=== PATIENT | male | born 1965 | race Caucasian/White ===

== ENCOUNTER 2019-03-06 20:09 | Inpatient (IN) | payer BC ==
[~2019-03-06] VITALS: Ht 190.5 cm; Wt 102.3 kg
[2019-03-06] MEDS ORDERED: NORVASC10 MG PO (20:14)
[2019-03-06] MEDS ORDERED: CELEXA20 MG PO (20:15)
[2019-03-06] MEDS ORDERED: ULORIC40 MG PO (20:15)
[2019-03-06] MEDS ORDERED: NEXIUM40 MG PO (20:15)
[2019-03-06] MEDS ORDERED: BENICAR HCT 201 EAC1 PO (20:15)
[2019-03-06] MEDS ORDERED: SINGULAIR10 MG PO (20:15)
--- NOTE | 2019-03-06 21:40 | NUR ---
ARRIVES VIA WC TO ROOM 10 TO RESTROOM THEN TO BED LOW AND LO-CKED AND CALL LIGHT PLACED SKIN WARM AND DRY AND LCTA IV FLUIDS STARTED AT 200/HR OTHER NEEDS OF COMFORT MEET VS 98.6 112/60 102 19 97%
--- NOTE | 2019-03-06 22:01 | NUR ---
NOTE PT HAS TELEMETRY ORDERED BUT NONE AVAILABLE
[2019-03-07 03:13] VITALS: BP 112/60; BMI 28.1
[2019-03-07 04:00] VITALS: BP 99/67
[2019-03-07 07:38] LABS: BASOPHILS 0.6 % (0-2); EOSINOPHILS 0.8 % (0-7); HEMATOCRIT 29.2 % (42.0-54.0); HEMOGLOBIN 10.5 g/dL (13.5-17.5); IMMATURE GRANULOCYTES 0.3 % (0-5); MCH 33.7 pg (26.0-34.0); MCV 93.6 fL (80.0-100.0); MEAN PLATELET VOLUME 9.6 fL (7.4-10.4); MONOCYTES 13.7 % (2-11); NEUTROPHILS 63.6 % (40-80); PLATELET COUNT 157 10x3/uL (130-400); RBC 3.12 10x6/uL (4.20-6.10); RDW 13.7 % (11.5-14.5); WBC 3.6 10x3/uL (4.8-10.8)
[2019-03-07 07:57] VITALS: BP 115/78
[2019-03-07 08:23] LABS: ALBUMIN 3.1 g/dL (3.4-5.0); ANION GAP 16.5 mmol/L (8-16); BILIRUBIN - TOTAL 1.46 mg/dL (0.2-1.3); CALCIUM 8.6 mg/dL (8.5-10.1); CREATININE - SERUM 2.6 mg/dL (0.6-1.3); MAGNESIUM - SERUM 1.1 mg/dL (1.8-2.4); POTASSIUM - SERUM 3.5 mmol/L (3.5-5.1); PROTEIN - SERUM 6.6 g/dL (6.4-8.2)
--- NOTE | 2019-03-07 08:26 | NUR ---
AM MEDS GIVEN AT THIS TIME. COMPUTER IN ROOM NOT WORKING, SO HAD TO TYPE IN MEDICATIONS AT DESK. PT WANTS TO TAKE A SHOWER LATER TODAY, WILL NOTIFY NURSE OR FERRY BOAT CAPTAIN WHEN READY. PROVIDED PT WITH TWO ROLLS OF TOILET PAPER. CALL LIGHT IN REACH, NAD NOTED,BEDSIDE RAILS X2, WILL CONTINUE TO MONITOR.
--- NOTE | 2019-03-07 11:36 | NUR ---
PROVIDED PT WITH SUPPLIES NEEDED FOR A SHOWER, COMPLETE LINEN CHANGE PROVIDED ALSO. PT DENIES ANY NEEDS AT THIS TIME. CALL LIGHT IN REACH, NAD NOTED, WILL CONTINUE PLAN OF CARE.
[2019-03-07 12:50] VITALS: BP 97/63
[2019-03-07 15:28] VITALS: Ht 190.5 cm; Wt 102.3 kg
[2019-03-07 16:52] VITALS: BP 110/72
[2019-03-07 19:05] LABS: APPEARANCE CLEAR (CLEAR); BILIRUBIN NEGATIVE (NEGATIVE); COLOR YELLOW (YELLOW); GLUCOSE 500 mg/dL (NEGATIVE); KETONE NEGATIVE (NEGATIVE); NITRITE NEGATIVE (NEGATIVE); PROTEIN NEGATIVE (NEGATIVE); SPECIFIC GRAVITY 1.015 (1.005-1.020); UROBILINOGEN NORMAL (NORMAL)
[2019-03-07 19:19] LABS: UDS - AMPHET NEGATIVE QUAL (NEGATIVE); UDS - BARB NEGATIVE QUAL (NEGATIVE); UDS - BENZO NEGATIVE QUAL (NEGATIVE); UDS - COCAINE NEGATIVE QUAL (NEGATIVE); UDS - OPIATE NEGATIVE QUAL (NEGATIVE); UDS - PCP NEGATIVE QUAL (NEGATIVE); UDS - THC NEGATIVE QUAL (NEGATIVE)
[2019-03-07 20:00] VITALS: BP 95/61
--- NOTE | 2019-03-07 22:31 | NUR ---
PT IN BED LOWEST POSITION, RFA IV NS RUNNING AND PATENT DRSG ADHERED WELL TO SKIN, ALCOHOL CAPS IN USE, ICE WATER REQUESTED AND GIVEN, NO OTHER NEEDS NOTED OR VERBALIZED, FLUIDS AND CALL LIGHT WITHIN REACH
--- NOTE | 2019-03-08 03:16 | NUR ---
MED TECH DOWN 0130 TO 0300, NS STARTED AT 0230, IV PATENT DRSG ADHERED TO SKIN, 2ND PO MAGNESIUM GIVEN, MAG LEVEL TO BE REDRAWN AT 0500, FLUIDS AND CALL LIGHT WITHIN REACH
[2019-03-08 04:00] VITALS: BP 103/61
[2019-03-08 05:46] LABS: BASOPHILS 0.5 % (0-2); EOSINOPHILS 2.1 % (0-7); HEMATOCRIT 27.1 % (42.0-54.0); HEMOGLOBIN 9.4 g/dL (13.5-17.5); LYMPHOCYTES 29.7 % (15-50); MCH 33.2 pg (26.0-34.0); MCHC 34.7 g/dL (31.0-37.0); MEAN PLATELET VOLUME 9.4 fL (7.4-10.4); MONOCYTES 12.5 % (2-11); NEUTROPHILS 55.2 % (40-80); RBC 2.83 10x6/uL (4.20-6.10); RDW 13.5 % (11.5-14.5); WBC 3.8 10x3/uL (4.8-10.8)
[2019-03-08 06:13] LABS: ANION GAP 11.8 mmol/L (8-16); CALCIUM 7.7 mg/dL (8.5-10.1); CARBON DIOXIDE 27.7 mmol/L (21.0-32.0); MAGNESIUM - SERUM 1.4 mg/dL (1.8-2.4); POTASSIUM - SERUM 3.5 mmol/L (3.5-5.1)
[2019-03-08 06:18] LABS: CREATININE - SERUM 1.6 mg/dL (0.6-1.3)
[2019-03-08 06:41] LABS: MCV 95.8 fL (80.0-100.0); PLATELET COUNT 122 10x3/uL (130-400)
--- NOTE | 2019-03-08 07:40 | NUR ---
PT RESTING COMFORTABLY IN BED, EASILY AROUSES TO VOICE, RESP EVEN AND NONLABORED ON RA. RT FA IV INFUSING NS AT 150CC/HR. 40MEQ OF K GIVEN FOR K OF 3.5, ALSO HUNG 1G OF MAG AT THIS TIME. PT WILL GET A TOTAL OF 2 BAGS. PT DNEIES ANY NEEDS AT THIS TIME. CALL LIGHT IN REACH, NAD NOTED, WILL CONTINUE TO MONITOR.
[2019-03-08 08:30] VITALS: BP 113/73
--- NOTE | 2019-03-08 09:27 | NUR ---
PROVIDED PT WITH ITEMS NEEDED FOR A SHOWER. BUCKET CHUCKER PROVIDED COMPLETE LINEN CHANGE AT THIS TIME.
[2019-03-08 12:59] VITALS: BP 109/69
[2019-03-08] MEDS ORDERED: MAG-OX 400 MG400 MG PO (13:24)
--- NOTE | 2019-03-08 14:00 | MORECARE ---
CASE MANAGEMENT DISCHARGE SUMMARY PATIENT: TATI ELIAS UNIT: [id number] ADM DATE: 03/06/19 AGE: 53 : 69 SEX: M ROOM/BED: D.2110 AUTHOR: ELVI DINH PHYSICIAN: REFERRING PHYSICIAN: TRAY BHATTI MD DATE OF SERVICE: 03/08/19 Discharge Plan Patient Name: TATI ELIAS Facility: [facility]:[place] : 1965 Planned Disposition: Other Type of Facility Anticipated Discharge Date: 03/08/19 Discharge Date: Expected LOS: 2 Initial Reviewer: [email or web address] Initial Review Date: 03/08/2019 Generated: 03/08/19 3:00 pm External Providers External Provider: OTHER-OTHER Next Contact Date: 03/08/2019 Service Request Date: Service Type: Resolution: Reviewer: Comments: Patient Name: TATI ELIAS Page 78452 at 1400 All edits/amendments must be made on the electronic document DICTATION DATE: 03/08/19 1400 MANAGER NC: GREG 03/08/19 1400 RPT#: [id number] DC DATE: STATUS: ADM IN [place] [address] [place] [address] END OF REPORT
--- NOTE | 2019-03-08 14:26 | MORECARE ---
CASE MANAGEMENT DISCHARGE SUMMARY PATIENT: TATI ELIAS UNIT: [id number] ADM DATE: 03/06/19 AGE: 53 : 69 SEX: M ROOM/BED: D.2110 AUTHOR: ELVI DINH PHYSICIAN: REFERRING PHYSICIAN: TRAY BHATTI MD DATE OF SERVICE: 03/08/19 Discharge Plan Patient Name: TATI ELIAS Facility: [facility]:[place] : 1965 Planned Disposition: Other Type of Facility Anticipated Discharge Date: 03/08/19 Discharge Date: Expected LOS: 2 Initial Reviewer: [email or web address] Initial Review Date: 03/08/2019 Generated: 03/08/19 3:26 pm DCPIA - Discharge Planning Initial Assessment Updated by [email or web address]: Kyler Richter on 03/08/19 2:19 pm * Is the patient Alert and Oriented? Yes * How many steps to enter\exit or inside your home? * PCP RUBY FARRIS APN FOR DR. LATOYA WAGGONER IN [place] * Pharmacy [facility] IN [place] * Preadmission Environment Home Alone * ADLs Independent * Equipment None * Other Equipment NO MEDICAL EQUIPMENT PROVIDER PREFERENCE * List name and contact numbers for known caregivers / representatives who currently or will assist patient after discharge: KANDY CALLOWAY, LADY FRIEND, CICI ELIAS, EX , BRIANNE MATA, [place] REP, * Verbal permission to speak to the caregivers and representatives has been obtained from the patient. Yes * Community resources currently utilized None * Please name any agencies selected above. NONE * Additional services required to return to the preadmission environment? No * Can the patient safely return to the preadmission environment? Yes * Has this patient been hospitalized within the prior 30 days at any hospital? No Last DP export: 03/08/19 1:00 p Patient Name: TATI ELIAS Page 19171 at 1426 All edits/amendments must be made on the electronic document DICTATION DATE: 03/08/[address] TECHNICIAN: GREG 03/08/19 1426 RPT#: [id number] ME DATE: STATUS: ADM IN [facility] [address] [place] [address] END OF REPORT
--- NOTE | 2019-03-08 15:00 | MORECARE ---
CASE MANAGEMENT DISCHARGE SUMMARY PATIENT: TATI ELIAS UNIT: [id number] ADM DATE: 03/06/19 AGE: 53 : 69 SEX: M ROOM/BED: D.2110 AUTHOR: ALLEGRA,DOC PHYSICIAN: REFERRING PHYSICIAN: TRAY BHATTI MD DATE OF SERVICE: 03/08/19 Discharge Plan Patient Name: TATI ELIAS [facility] [facility] 1965 Planned Disposition: Other Type of Facility Anticipated Discharge Date: 03/08/19 Discharge Date: Expected LOS: 2 Initial Reviewer: [id number] Initial Review Date: 03/08/2019 Generated: 03/08/19 4:00 pm Comments DCP- Discharge Planning Updated by [email or web address]: Kyler Richter on 03/08/19 1:[address] Patient Name: TATI ELIAS Admission Status: ER Accout number: [id number] Admission Date: 03-06-2019 : 1965 Admission Diagnosis:ACUTE KIDNEY FAILURE, UNSPECIFIED Attending: TRAY BHATTI Current LOS: 2 Anticipated DC Date: 03-08-2019 Planned Disposition: Other Type of Facility Primary Insurance: [employer] PPO PLANNED EXTERNAL PROVIDER: [facility], CHEMICAL DEPENDENCY UNIT Discharge Planning Comments: CM RECEIVED REQUEST TO SEE PT IN ROOM REGARDING INSURANCE. CM MET WITH PT IN ROOM TO DISCUSS DISCHARGE PLANNING AND NEEDS. PT WANTS THE DOCTOR TO SIGN FMLA PAPERWORK, CM DIRECTED PT TO HIS PRIMARY CARE DOCTOR. PT REPORTS LIVING AT HOME INDEPENDENTLY AND ALONE. PT HAS NO MEDICAL EQUIPMENT AND NO OUTSIDE SERVICES ASSISTING IN THE HOME. CM DISCUSSED AVAILABILITY OF HOME HEALTH, REHAB SERVICES AND MEDICAL EQUIPMENT. PT REPORTS HE WILL RETURN TO "[facility]" IN [place] AT DISCHARGE. CM ASKED WHAT TYPE OF FACILITY THIS IS. PT DIRECTED CM TO HIS UNION REPRESENTIVE, BRIANNE MATA. PT REPORTS HIS LADY FRIEND WILL PICK HIMUP FOR DISCHARGE BACK TO [facility] IN [place]. CM RECEIVED CALL FROM BRIANNE BARRETO REPORTS PT WAS GOING TO BE ADMITTED TO [facility] CHEMICAL DEPENDENCY UNIT BUT WAS SENT TO [place] DUE TO ABNORMAL LABS. THE PLAN IS FOR PT TO GO TO [facility] AND ADMIT TO CHEMICAL DEPENDENCY UNIT ON DISCHARGE FROM HOSPITAL. BRIANNE WILL SEND FMLA PAPERWORK TO THE CHEMICAL DEPENDENCY UNIT WITH REQUEST FOR COMPLETION THERE. CM CALLED [facility]ENDENCY [facility], , CONFIRMED REFERRAL FOR TREATMENT ADMISSION, THEY ARE WAITING ON CLINICALS. CM FAXED HOSPITAL UPDATE FOR ADMISSION REQUEST TO RU AT [phone]. CM RECEIVED CALL FROM BRIANNE WHO REPORTS THAT PT'S LADY FRIEND NOR HE IS ABLE TO BEHAVIORAL HEALTH CONSULTANT PT UNTIL TOMORROW FOR TRANSPORT TO REHAB IN [place]. PT AND BRIANNE ARE AWARE THAT PT HAS BEEN DISCHARGED FROM THE HOSPITAL TODAY. CM WAITING ADMISSION DETERMINATION FROM [facility] CHEM[facility] DEPENDENCY [facility]. Clinic Nurse: Kyler Richter DCPIA - Discharge Planning Initial Assessment Updated by [email or web address]: Kyler Richter on 03/08/19 2:19 pm * Is the patient Alert and Oriented? Yes * How many steps to enter\\exit or inside your home? * PCP RUBY FARRIS APN FOR DR. LATOYA WAGGONER IN [place] * Pharmacy [facility] IN [place] * Preadmission Environment Home Alone * ADLs Independent * Equipment None * Other Equipment NO MEDICAL EQUIPMENT PROVIDER PREFERENCE * List name and contact numbers for known caregivers / representatives who currently or will assist patient after discharge: KANDY BRODIE, LADY FRIEND, CICI ELIAS, EX , BRIANNE MATA, [place] REP, * Verbal permission to speak to the caregivers and representatives has been obtained from the patient. Yes * Community resources currently utilized None * Please name any agencies selected above. NONE * Additional services required to return to the preadmission environment? No * Can the patient safely return to the preadmission environment? Yes * Has this patient been hospitalized within the prior 30 days at any hospital? No Last DP export: 03/08/19 1:26 p Patient Name: TATI ELIAS Page 84897 at 1500 All edits/amendments must be made on the electronic document DICTATION DATE: 03/08/191458 CONDUIT CLEANER: GREG 03/08/191458 RPT#: [id number] DC DATE: STATUS: ADM IN [facility] [address] [place] [address] END OF REPORT
--- NOTE | 2019-03-08 15:42 | MORECARE ---
CASE MANAGEMENT DISCHARGE SUMMARY PATIENT: TATI ELIAS UNIT: [id number] ADM DATE: 03/06/19 AGE: 53 : 69 SEX: M ROOM/BED: D.2110 AUTHOR: ALLEGRA,DOC PHYSICIAN: REFERRING PHYSICIAN: TRAY BHATTI MD DATE OF SERVICE: 03/08/19 Discharge Plan Patient Name: TATI ELIAS [facility] [facility] 1965 Planned Disposition: Other Type of Facility Anticipated Discharge Date: 03/08/19 Discharge Date: Expected LOS: 2 Initial Reviewer: [email or web address] Initial Review Date: 03/08/2019 Generated: 03/08/19 4:42 pm Comments DCP- Discharge Planning Updated by [email or web address]: Kyler Richter on 03/08/19 1:[address] Patient Name: TATI ELIAS Admission Status: ER Accout number: [id number] Admission Date: 03-06-2019 : 1965 Admission Diagnosis:ACUTE KIDNEY FAILURE, UNSPECIFIED Attending: TRAY BHATTI Current LOS: 2 Anticipated DC Date: 03-08-2019 Planned Disposition: Other Type of Facility Primary Insurance: [employer] PPO PLANNED EXTERNAL PROVIDER: [facility], CHEMICAL DEPENDENCY UNIT Discharge Planning Comments: CM RECEIVED REQUEST TO SEE PT IN ROOM REGARDING INSURANCE. CM MET WITH PT IN ROOM TO DISCUSS DISCHARGE PLANNING AND NEEDS. PT WANTS THE DOCTOR TO SIGN FMLA PAPERWORK, CM DIRECTED PT TO HIS PRIMARY CARE DOCTOR. PT REPORTS LIVING AT HOME INDEPENDENTLY AND ALONE. PT HAS NO MEDICAL EQUIPMENT AND NO OUTSIDE SERVICES ASSISTING IN THE HOME. CM DISCUSSED AVAILABILITY OF HOME HEALTH, REHAB SERVICES AND MEDICAL EQUIPMENT. PT REPORTS HE WILL RETURN TO "[facility]" IN [place] AT DISCHARGE. CM ASKED WHAT TYPE OF FACILITY THIS IS. PT DIRECTED CM TO HIS UNION REPRESENTIVE, BRIANNE MATA. PT REPORTS HIS LADY FRIEND WILL PICK HIMUP FOR DISCHARGE BACK TO [facility] IN [place]. CM RECEIVED CALL FROM BRIANNE BARRETO REPORTS PT WAS GOING TO BE ADMITTED TO [facility] CHEMICAL DEPENDENCY UNIT BUT WAS SENT TO [place] DUE TO ABNORMAL LABS. THE PLAN IS FOR PT TO GO TO [facility] AND ADMIT TO CHEMICAL DEPENDENCY UNIT ON DISCHARGE FROM HOSPITAL. BRIANNE WILL SEND FMLA PAPERWORK TO THE CHEMICAL DEPENDENCY UNIT WITH REQUEST FOR COMPLETION THERE. CM CALLED [facility], , CONFIRMED REFERRAL FOR TREATMENT ADMISSION, THEY ARE WAITING ON CLINICALS. CM FAXED HOSPITAL UPDATE FOR ADMISSION REQUEST TO RU AT [phone]. CM RECEIVED CALL FROM BRIANNE WHO REPORTS THAT PT'S LADY FRIEND NOR HE IS ABLE TO AUTO BODY REPAIRER PT UNTIL TOMORROW FOR TRANSPORT TO REHAB IN [place]. PT AND BRIANNE ARE AWARE THAT PT HAS BEEN DISCHARGED FROM THE HOSPITAL TODAY. CM WAITING ADMISSION DETERMINATION FROM [facility] DE[facility]END[facility]Y [facility]. Lithographic Printing Machinist: Kyler Richter DCPIA - Discharge Planning Initial Assessment Updated by [id number]: Kyler Richter on 03/08/19 2:19 pm * Is the patient Alert and Oriented? Yes * How many steps to enter\\exit or inside your home? * PCP RUBY FARRIS APN FOR DR. LATOYA WAGGONER IN [place] * Pharmacy [facility] IN [place] * Preadmission Environment Home Alone * ADLs Independent * Equipment None * Other Equipment NO MEDICAL EQUIPMENT PROVIDER PREFERENCE * List name and contact numbers for known caregivers / representatives who currently or will assist patient after discharge: KANDY BRODIE, LADY FRIEND, CICI ELIAS, EX , BRIANNE MATA, [place] REP, * Verbal permission to speak to the caregivers and representatives has been obtained from the patient. Yes * Community resources currently utilized None * Please name any agencies selected above. NONE * Additional services required to return to the preadmission environment? No * Can the patient safely return to the preadmission environment? Yes * Has this patient been hospitalized within the prior 30 days at any hospital? No Last DP export: 03/08/19 2:00 p Patient Name: TATI ELIAS Page 48659 at 1542 All edits/amendments must be made on the electronic document DICTATION DATE: 03/08/191541 FORWARDER OPERATOR: GREG 03/08/191541 RPT#: [id number] DC DATE: STATUS: ADM IN [facility] [address] [facility] [place] [address] END OF REPORT
--- NOTE | 2019-03-08 15:55 | MORECARE ---
CASE MANAGEMENT DISCHARGE SUMMARY PATIENT: TATI ELIAS UNIT: [id number] ADM DATE: 03/06/19 AGE: 53 : 69 SEX: M ROOM/BED: D.2110 AUTHOR: ALLEGRA,DOC PHYSICIAN: REFERRING PHYSICIAN: TRAY BHATTI MD DATE OF SERVICE: 03/08/19 Discharge Plan Patient Name: TATI ELIAS [facility] [facility] 1965 Planned Disposition: Other Type of Facility Anticipated Discharge Date: 03/08/19 Discharge Date: Expected LOS: 2 Initial Reviewer: [email or web address] Initial Review Date: 03/08/2019 Generated: 03/08/19 4:54 pm Comments DCP- Discharge Planning Updated by [email or web address]: Kyler Cunningham on 03/08/19 2:[address] Patient Name: TATI ELIAS Admission Status: ER Accout number: [id number] Admission Date: 03-06-2019 : 1965 Admission Diagnosis:ACUTE KIDNEY FAILURE, UNSPECIFIED Attending: TRAY BHATTI Current LOS: 2 Anticipated DC Date: 03-08-2019 Planned Disposition: Other Type of Facility Primary Insurance: [employer] PPO PLANNED EXTERNAL PROVIDER: [facility], CHEMICAL DEPENDENCY UNIT Discharge Planning Comments: CM RECEIVED REQUEST TO SEE PT IN ROOM REGARDING INSURANCE. CM MET WITH PT IN ROOM TO DISCUSS DISCHARGE PLANNING AND NEEDS. PT WANTS THE DOCTOR TO SIGN FMLA PAPERWORK, CM DIRECTED PT TO HIS PRIMARY CARE DOCTOR. PT REPORTS LIVING AT HOME INDEPENDENTLY AND ALONE. PT HAS NO MEDICAL EQUIPMENT AND NO OUTSIDE SERVICES ASSISTING IN THE HOME. CM DISCUSSED AVAILABILITY OF HOME HEALTH, REHAB SERVICES AND MEDICAL EQUIPMENT. PT REPORTS HE WILL RETURN TO "[facility]" IN [place] AT DISCHARGE. CM ASKED WHAT TYPE OF FACILITY THIS IS. PT DIRECTED CM TO HIS UNION REPRESENTIVE, BRIANNE MATA. PT REPORTS HIS LADY FRIEND WILL PICK HIMUP FOR DISCHARGE BACK TO [facility] IN [place]. CM RECEIVED CALL FROM BRIANNE BARRTEO REPORTS PT WAS GOING TO BE ADMITTED TO [facility] CHEMICAL DEPENDENCY UNIT BUT WAS SENT TO [place] DUE TO ABNORMAL LABS. THE PLAN IS FOR PT TO GO TO [facility] AND ADMIT TO CHEMICAL DEPENDENCY UNIT ON DISCHARGE FROM HOSPITAL. BRIANNE WILL SEND FMLA PAPERWORK TO THE CHEMICAL DEPENDENCY UNIT WITH REQUEST FOR COMPLETION THERE. CM CALLED [facility]END[facility], , CONFIRMED REFERRAL FOR TREATMENT ADMISSION, THEY ARE WAITING ON CLINICALS. CM FAXED HOSPITAL UPDATE FOR ADMISSION REQUEST TO RU AT [phone]. CM RECEIVED CALL FROM BRIANNE WHO REPORTS THAT PT'S LADY FRIEND NOR HE IS ABLE TO ANDROID PLATFORM DEVELOPER PT UNTIL TOMORROW FOR TRANSPORT TO REHAB IN [place]. PT AND BRIANNE ARE AWARE THAT PT HAS BEEN DISCHARGED FROM THE HOSPITAL TODAY. CM WAITING ADMISSION DETERMINATION FROM [facility]END[facility]Y [facility]. Harness Racing Handicapper: Kyler Cunningham Appended by Kyler Cunningham on 03/08/2019 15:44 CDT: CM RECEIVED CALL FROM RU OF [facility]END[facility]Y UN[facility], THEY WILL ACCEPT PT ANYTIME DAY OR NIGHT. ANTHONY EXPLAINED THAT PT DOES NOT HAVE A RIDE UNTIL TOMORROW, THEY WILL ACCEPT PT TOMORROW. RU WILL ATTEMPT TO LOCATE TRANSPORTATION FOR TODAY IF POSSIBLE. ANTHONY NOTIFIED PT WHO IS WILLING TO GO TO TREATMENT TODAY IF THE FACILITY WILL ANDROID PLATFORM DEVELOPER, REPORTS THAT IF NOT, HE WILL HAVE A RIDE TOMORROW TO GO TO [place] FOR TREATMENT. [facility] DEPENDENCY [facility] WILL ACCEPT PT ANYTIME TODAY, TONIGHT OR TOMORROW. PT HAS A RIDE TOMORROW, 03-09-19. KYLER CUNNING[place]AM, CASE MANAGEMENT DCPIA - Discharge Planning Initial Assessment Updated by [id number]: Kyler Cunningham on 03/08/19 2:19 pm * Is the patient Alert and Oriented? Yes * How many steps to enter\\exit or inside your home? * PCP RUBY FARRIS APN FOR DR. LATOYA WAGGONER IN [place] * Pharmacy [facility] IN [place] * Preadmission Environment Home Alone * ADLs Independent * Equipment None * Other Equipment NO MEDICAL EQUIPMENT PROVIDER PREFERENCE * List name and contact numbers for known caregivers / representatives who currently or will assist patient after discharge: KANDY BRODIE, LADY FRIEND, CICI ELIAS, EX , BRIANNE MATA, [place] REP, * Verbal permission to speak to the caregivers and representatives has been obtained from the patient. Yes * Community resources currently utilized None * Please name any agencies selected above. NONE * Additional services required to return to the preadmission environment? No * Can the patient safely return to the preadmission environment? Yes * Has this patient been hospitalized within the prior 30 days at any hospital? No Last DP export: 03/08/19 2:42 p Patient Name: TATI ELIAS Page [id number] at 1555 All edits/amendments must be made on the electronic document DICTATION DATE: 03/08/191553 RESIDENT CARE TECHNICIAN: GREG 03/08/191553 RPT#: [id number] DC DATE: STATUS: ADM IN [facility] [address] [place] [address] END OF REPORT
[2019-03-08 16:04] VITALS: BP 107/65
--- NOTE | 2019-03-08 19:43 | NUR ---
REPORT RECEIVED FROM DAY SHIFT, PT CARE ASSUMED. INTRODUCED SELF AND WROTE NAME ON BOARD, PT AAOX4, SITTING UP AT BEDSIDE. DENIES PAIN AND ANY OTHER NEEDS AT THIS TIME. BED IN LOWEST POSITION, SR X2, CALL LIGHT WITHIN REACH. WILL CONTINUE TO MONITOR.
[2019-03-08 20:00] VITALS: BP 108/74
--- NOTE | 2019-03-08 20:00 | NUR ---
PT AMBULATING IN HALLWAY, REQUESTING TO ORDER PIZZA THIS PM. DENIES ANY OTHER NEEDS AT THIS TIME. WILL CONTINUE TO MONITOR.
[2019-03-09] VITALS: BP 109/76
[2019-03-09 04:00] VITALS: BP 104/71
--- NOTE | 2019-03-09 04:00 | NUR ---
PT LYING IN BED, AA&O. DENIES PAIN OR NEEDS AT THIS TIME. BED IN LOWEST POSITION, SR X2, CALL LIGHT WITHIN REACH. WILL CONTINUE TO MONITOR.
[2019-03-09 05:39] LABS: BASOPHILS 0.6 % (0-2); EOSINOPHILS 1.5 % (0-7); HEMATOCRIT 26.5 % (42.0-54.0); HEMOGLOBIN 9.1 g/dL (13.5-17.5); IMMATURE GRANULOCYTES 0.2 % (0-5); LYMPHOCYTES 26.7 % (15-50); MCH 33.7 pg (26.0-34.0); MCHC 34.3 g/dL (31.0-37.0); MEAN PLATELET VOLUME 9.7 fL (7.4-10.4); MONOCYTES 11.3 % (2-11); NEUTROPHILS 59.7 % (40-80); PLATELET COUNT 122 10x3/uL (130-400); RDW 13.7 % (11.5-14.5)
[2019-03-09 05:45] LABS: MCV 98.1 fL (80.0-100.0); WBC 4.8 10x3/uL (4.8-10.8)
[2019-03-09 05:48] LABS: ANION GAP 13.2 mmol/L (8-16); CALCIUM 7.9 mg/dL (8.5-10.1); CARBON DIOXIDE 25.7 mmol/L (21.0-32.0); CREATININE - SERUM 1.4 mg/dL (0.6-1.3); MAGNESIUM - SERUM 1.2 mg/dL (1.8-2.4); POTASSIUM - SERUM 3.9 mmol/L (3.5-5.1)
--- NOTE | 2019-03-09 07:05 | NUR ---
REPORT RECEIVED. ALERT IN ROOM STATES I AM WAITING TO BE DISCHARGED TODAY. RESP EVEN WITHOUT LABOR. ESSENTIONAL TREMORS NOTED. HE DENIES ANY PAIN OR NEEDS. SALINE LOCK INTACT TO RIGHT A/C SITE IS CLEAR. BED IN LOWEST POSITION AND LOCKED. CAREPLAN REVIEW DONE WITH SAFETY PRECAUTIONS IN PLACE. CL IN REACH
--- NOTE | 2019-03-09 11:45 | NUR ---
HIS IS HERE AND HE HAS SIGNED HIS DISCHARGE PAPERS. THEY WERE EXPLAINED IN DETAIL. SALINE LOCK WAS D/C WITH CATH INTACT, MINIMAL BLEEDING. LEFT PER W/C TO PRIVATE AUTO
--- NOTE | 2019-03-10 06:33 | MORECARE ---
CASE MANAGEMENT DISCHARGE SUMMARY PATIENT: TATI ELIAS UNIT: [id number] ADM DATE: 03/06/19 AGE: 53 : 69 SEX: M ROOM/BED: D.2110 AUTHOR: ALLEGRA,DOC PHYSICIAN: REFERRING PHYSICIAN: TRAY BHATTI MD DATE OF SERVICE: 03/10/19 Discharge Plan Patient Name: TATI ELIAS [facility] [facility] 1965 Planned Disposition: Other Type of Facility Anticipated Discharge Date: 03/09/19 Discharge Date: 03/09/2019 Expected LOS: 3 Initial Reviewer: [id number] Initial Review Date: 03/08/2019 Generated: 03/10/19 7:32 am Comments DCP- Discharge Planning Updated by [email or web address]: Kyler Cunningham on 03/08/19 2:[address] Patient Name: TATI ELIAS Admission Status: ER Accout number: [id number] Admission Date: 03-06-2019 : 1965 Admission Diagnosis:ACUTE KIDNEY FAILURE, UNSPECIFIED Attending: TRAY BHATTI Current LOS: 2 Anticipated DC Date: 03-08-2019 Planned Disposition: Other Type of Facility Primary [facility] [employer] [facility]NAL PROVIDER: [facility]PEND[facility] Discharge Planning Comments: CM RECEIVED REQUEST TO SEE PT IN ROOM REGARDING INSURANCE. CM MET WITH PT IN ROOM TO DISCUSS DISCHARGE PLANNING AND NEEDS. PT WANTS THE DOCTOR TO SIGN FMLA PAPERWORK, CM DIRECTED PT TO HIS PRIMARY CARE DOCTOR. PT REPORTS LIVING AT HOME INDEPENDENTLY AND ALONE. PT HAS NO MEDICAL EQUIPMENT AND NO OUTSIDE SERVICES ASSISTING IN THE HOME. CM DISCUSSED AVAILABILITY OF HOME HEALTH, REHAB SERVICES AND MEDICAL EQUIPMENT. PT REPORTS HE WILL RETURN TO "[facility]" IN [place] AT DISCHARGE. CM ASKED WHAT TYPE OF FACILITY THIS IS. PT DIRECTED CM TO HIS UNION REPRESENTIVE, BRIANNE MATA. PT REPORTS HIS LADY FRIEND WILL PICK HIMUP FOR DISCHARGE BACK TO [facility] IN [place]. CM RECEIVED CALL FROM BRIANNE BARRETO REPORTS PT WAS GOING TO BE ADMITTED TO [facility] BUT WAS SENT TO [facility] DUE TO ABNORMAL LABS. THE PLAN IS FOR PT TO GO TO [facility] AND ADMIT TO CHEMICAL DEPENDENCY UNIT ON DISCHARGE FROM HOSPITAL. BRIANNE WILL SEND FMLA PAPERWORK TO THE CHEMICAL DEPENDENCY UNIT WITH REQUEST FOR COMPLETION THERE. CM CALLED [facility], , CONFIRMED REFERRAL FOR TREATMENT ADMISSION, THEY ARE WAITING ON CLINICALS. CM FAXED HOSPITAL UPDATE FOR ADMISSION REQUEST TO [facility] AT [phone]. CM RECEIVED CALL FROM BRIANNE WHO REPORTS THAT PT'S LADY FRIEND NOR HE IS ABLE TO MEMS PROCESS ENGINEER PT UNTIL TOMORROW FOR TRANSPORT TO REHAB IN [place]. PT AND BRIANNE ARE AWARE THAT PT HAS BEEN DISCHARGED FROM THE HOSPITAL TODAY. CM WAITING ADMISSION DETERMINATION FROM [facility]. Hotel Operation Manager: Kyler Cunningham Appended by Kyler Cunningham on 03/08/2019 15:44 CDT: CM RECEIVED CALL FROM [facility] OF [facility], THEY WILL ACCEPT PT ANYTIME DAY OR NIGHT. CM EXPLAINED THAT PT DOES NOT HAVE A RIDE UNTIL TOMORROW, THEY WILL ACCEPT PT TOMORROW. RU WILL ATTEMPT TO LOCATE TRANSPORTATION FOR TODAY IF POSSIBLE. ANTHONY NOTIFIED PT WHO IS WILLING TO GO TO TREATMENT TODAY IF THE FACILITY WILL MEMS PROCESS ENGINEER, REPORTS THAT IF NOT, HE WILL HAVE A RIDE TOMORROW TO GO TO [place] FOR TREATMENT. [facility] WILL ACCEPT PT ANYTIME TODAY, TONIGHT OR TOMORROW. PT HAS A RIDE TOMORROW, 03-09-19. KYLER CUNNINGHAM, CASE MANAGEMENT DCPIA - Discharge Planning Initial Assessment Updated by [email or web address]: Kyler Cunningham on 03/08/19 2:19 pm * Is the patient Alert and Oriented? Yes * How many steps to enter\\exit or inside your home? * PCP [facility] FOR DR. LATOYA WAGGONER IN [place] * Pharmacy [facility] IN [place] * Preadmission Environment Home Alone * ADLs Independent * Equipment None * Other Equipment NO MEDICAL EQUIPMENT PROVIDER PREFERENCE * List name and contact numbers for known caregivers / representatives who currently or will assist patient after discharge: KANDY BRODIE, LADY FRIEND, CICI ELIAS, EX , BRIANNE MATA, HERMISTON REP, * Verbal permission to speak to the caregivers and representatives has been obtained from the patient. Yes * Community resources currently utilized None * Please name any agencies selected above. NONE * Additional services required to return to the preadmission environment? No * Can the patient safely return to the preadmission environment? Yes * Has this patient been hospitalized within the prior 30 days at any hospital? No Last DP export: 03/08/19 2:55 p Patient Name: TATI ELIAS Page [id number] at 0633 All edits/amendments must be made on the electronic document DICTATION DATE: 03/10/19631 WOOL SORTER: GREG 03/10/19631 RPT#: [id number] DC DATE:03/09/19 STATUS: DIS IN [facility] [address] [place] [address] END OF REPORT
== END 2019-03-09 13:59 | disposition home or self-care (01) | DRG 683 ==
LOC: D.ER 20:09 → D.M2 20:31
PROVIDERS: Family Medicine; ADMIT Internal Medicine Nephrology; ATTEND Internal Medicine Nephrology
DX: N17.9 Acute kidney failure, unspecified (principal); E87.1 Hypo-osmolality and hyponatremia; F10.20 Alcohol dependence, uncomplicated; I10 Essential (primary) hypertension; D64.9 Anemia, unspecified; E83.42 Hypomagnesemia; M10.9 Gout, unspecified; F32.9 Major depressive disorder, single episode, unspecified